=== PATIENT | male | born 1960 | race Caucasian/White ===

== ENCOUNTER → 2016-12-13 | Outpatient (CLI) | payer OTHER ==
[~2016-12-13] MED LIST: ASPEC325 PO; CLB200 PO; [UNRECOGNIZED DRUG - OTHER]
--- NOTE | 2016-12-14 06:39 | PAP/PSG TECHNICIAN REPORT ---
[facility] Climate Change Risk Assessor Polysomnogram Report Study name: None Report date: 12/14/2016 Study date: 12/13/2016 Referring Physician: Genesis Mcclure Name: ELOISA PEREZ Interpreting Physician: Cuca Blanc M.D. Date of : 1960 Climate Change Risk Assessor: Sophy Arnett, PSGT. Sex: Male Age: 56 StudyType: PSG Weight: 273 lbs Height: 56 years, Height 6' 4" Neck Circum:17.5 inches BMI: 33.23 Medications: Anusol - hc. Patient History 56 YR. OLD MALE IN ROOM 7, PRESENTS TONIGHT FOR A SPLIT NIGHT STUDY. PT. STATES THAT HIS GIRLFRIEND HAS WITNESSED APNA, HE WAKES HIMSELF SNORING AND HE HAS UNREFRESHED SLEEP.ROOM # 7, ESS= 8, NECK= 17.5 INCHES. Parameters Monitored NPSG: E1-M2, E2-M1, Fp1-M2, Fp2-M1, F3-M2, F4-M2, F4-M1, C3-M2, C4-M2, C4-M1, O1-M2, O2-M2, O2-M1, T3-M2, T4-M1, P3-M2, P4-M1, CHIN1, CHIN2, HR, EKG, Legs, PFLOW, SNOR, FLOW, CFLOW, Tidal Volume, THOR, ABDO, SpO2, PLTH, CPRESS, ETCO2 Wave, ETCO2, pH Sleep Architecture Sleep Stages Time at Lights Off 9:44:32 PM STAGES Time (min.) TST (%) Time at Lights On 5:10:02 AM Wake 58.0 -- Total Recording Time (TRT) 446.00 min. N1 16.0 4 Total Sleep Period (TSP) 423.5 min. N2 289.5 75 Total Sleep Time (TST) 386.5min. N3 5.5 1 Awake Time 58.0 min. REM 75.5 20 Wake after Sleep Onset 37.0 min. Sleep Efficiency (SE) 87 % Sleep Onset Latency (JANENE) 22.0 min. Number of Stage 1 Shifts None Awakenings 12 Stage Changes 53 Number of REM periods 7 REM 75.5 20 REM Latency 55.5 min. NREM 311.0 80 Body Position Analysis Supine Right Left Side Prone Vertical Total Sleep Time (min.) 220.2 12.5 195.7 208.22 0.0 0.0 Total Sleep Time (%) 46% 3% 51% 54 0% N/A% Total Sleep Time REM (min.) 18.1 0.0 57.4 None 0.0 0.0 Total Sleep Time NREM (min.) 160.2 12.5 138.3 None 0.0 0.0 Intermittent Wake (min.) 41.9 4.4 11.7 None 0.0 0.0 Total Sleep Period (%) 47% None None None None None Arousals Myoclonus (PLM) * Events Count Index Events Count Index Spontaneous 24 4 Events Awake (PLMW) 4 4.1 Respiratory 6 0.9 Events Asleep w/ Arousal (PLMA) 1 0.2 PLM 1 0 Events Asleep w/o Arousal (PLMS) 54 8.4 Snoring 1 0 Total Asleep 55 8.5 Total 32 5 Total 59 8 Respiratory Analysis * CA OA MA CH H RERA Total Count 0 0 0 0 29 3 29 Index 0.0 0.0 0.0 0 4.5 0 5.0 Mean Duration 0.0 0.0 0.0 0.00 24.3 13.8 23.3 Longest Duration 0.0 0.0 0.0 0.00 0.0 18.3 51.4 Respiratory Event Summary Total Supine ~Supine Right Left Prone REM NREM Apneas Count 0 0 0 0 0 N/A 0 0 Index 0.0 0 0 0.0 0.0 N/A 0 0 Hypopneas (4% Desat) Count 29 12 17 0 17 N/A 4 25 Index 4.5 4.0 5 0.0 5.2 N/A 3.2 4.8 Apneas & All Hypopneas Count 29 12 17 0 17 N/A 4 25 Index 4.5 4 5 0 5 N/A 3.2 4.8 Respiratory Events ([place]+All Hyp+RERA) Count 29 12 20 0 20 N/A 4 25 Index 5.0 4 6 0.0 6.1 N/A 3.2 5.4 Respiratory Related Arousal Count 6 12 6 0 6 N/A 0 6 Index 0.9 0 2 0 2 N/A 0 1 Snoring Analysis Supine Right Left Prone REM NREM Total Snore duration 0.5 min Snores count 10 6 7 N/A 1 22 23 Snore mean duration 1.3 Sec Snores index 3 29 2 N/A 0.8 4.2 3.6 TST with snoring (%) 0.1% Desaturation Event Summary: Minimum %SpO2 Event Count Mean/Min/Max Duration(sec.) Desaturation Index % Time In Bed > 90 32 29.6 / 11.0 / 57.2 12.0 39.3 86 - 90 31 27.5 / 12.0 / 53.8 7.7 59.3 81 - 85 0 N/A 0.0 1.3 76 - 80 0 N/A 0.0 0.1 71 - 75 0 N/A 0.0 0.0 66 - 70 0 N/A 0.0 0.0 61 - 65 0 N/A 0.0 0.0 56 - 60 0 N/A 0.0 0.0 51 - 55 0 N/A 0.0 0.0 < 50 0 N/A 0.0 0.0 Total REM NREM Awake <50% 0.0 min. 0.0 min. 0.0 min. 0.0 min. 51 - 60% 0.0 min. 0.0 min. 0.0 min. 0.0 min. 61 - 70% 0.0 min. 0.0 min. 0.0 min. 0.0 min. 71 - 80% 0.3 min. 0.0 min. 0.1 min. 0.2 min. 81 - 90% 246.5 min. 39.7 min. 188.6 min. 18.2 min. 91 - 100% 159.9 min. 32.7 min. 106.1 min. 21.1 min. Average 90 90 90 91 Minimum SpO2 80 83 80 80 Desaturation Event Index 5.4 5.6 6.4 0.0 # Desat. Events below 89% 38 6 32 0 Time(%) with Saturation below 89% 22.6 4.7 16.8 1.1 Time(min.) with Saturation below 89% 91.8 19.0 68.4 4.4 Time (mins) REM (mins) NREM (mins) % of TST SpO2 Below 90% 40 7 N33 34.6 SpO2 Below 88% 18 0 0 14 Heart Rate Analysis Min (bpm) Max (bpm) Average (bpm) Awake 44 161 55 NREM 33 127 49 REM 44 127 52 Overall 33 127 49 Supplemental O2 Values Minimum O2 level: None Value Start Time End Time Climate Change Risk Assessor Comments PSG Study slept in the right, left, and supine positions. No cardiac arrhythmia or PLM's noted. No bruxism noted. Snoring was noted and scored as a 3 on a scale of 1 through 5. (0=no snoring, 5=snoring loud enough to be heard through a closed door or down the [address] way) Mr. Perez awoke to use the restroom zero times during the night. Mr. Perez stated, I did sleep as well as I do when I am in my own bed. The final report will be interpreted and signed by a sleep physician. The completed physician report will then be placed in the patient medical record. Pt. had some mild respiratory events and moderate snoring, throughout the study. Therapy (cm H2O) 0 TIB (min.) 444.5 TST (min.) 386.5 Sleep Onset (min.) 22.0 REM Onset From Sleep (min.) 55.5 Sleep Efficiency % 87 Wakefulness (%) 13 Wakefulness (min.) 58.0 NREM 1 (%) 4 NREM 1 (min.) 16.0 NREM 2 (%) 75 NREM 2 (min.) 289.5 NREM 3 (%) 1 NREM 3 (min.) 5.5 REM (%) 20 REM (min.) 75.5 # Arousals 32 Arousal Index 5 # Snore 23 Snore Index 3.6 AHI 4.5 AHI Supine 4 AHI Non-Supine 5 NREM AHI 4.8 REM AHI 3.2 RDI 5.0 # Obstructive Apnea 0 # Central Apnea 0 # Mixed Apnea 0 # Hypopneas 29 RERAs 3 Total Respiratory Events 32 Time Below SpO2 89% (min.) 87.4 Mean NREM SpO2 (%) 90 Mean REM SpO2 (%) 90 Mean Sleep SpO2 (%) 90 Min NREM SpO2 (%) 80 Min REM SpO2 (%) 83 Position Supine (min.) 220.2 Position Non-supine (min.) 208.2 LM Index Sleep 8.5 LM Index NREM 8.5 LM Index REM 8.7 Mean Heart Rate (bpm) 49 Min Heart Rate (bpm) 33
--- NOTE | 2016-12-27 09:10 | POLYSOMNOGRAPH REPORT ---
TEST DATE: 12/13/2016. REFERRING PERSON: Dr. Cuca Blanc. ORTHOTIST: Araseli Arnett. Mr. Perez is a 56-year-old male who presents for a split night sleep study. He states his girlfriend has witnessed him pause in his breathing when he sleeps at night. He does not wake unrefreshed from sleep and he does snore. His [place] Sleepiness Scale Score on the evening of this study is 8. BMI is 33.23. Following the technical and digital specifications of the [place] [employer] (AASM) a standard diagnostic polysomnogram was performed monitoring EEG, EOG, EMG (chin and leg deviations), oxygen saturation, body position, digital video, respiratory effort and airflow. The sleep Stage and event scoring was based on the AASM Manual for the Scoring of Sleep and Associated Events 2007 edition. Apneas are defined as a drop in the peak thermal sensor excursion by >90% of baseline for at least 10 seconds. Hypopneas were scored using the 4% oxygen desaturation rule (4A-[employer]) and a decrease in the nasal pressure excursions by >30% of baseline for at least 10 seconds. Respiratory effort-related arousal (RERA's) is defined as a sequence of breaths lasting at least 10 seconds characterized by increasing respiratory effort or flattening of the nasal pressure waveform leading to an arousal from sleep when the sequence of breaths does not meet criteria for an apnea or hypopnea. Apnea Hypopnea index (AHI) is defined as the number of apneas and hypopneas occurring in an hour of sleep. Respiratory disturbance index (RDI) is defined as the number of apneas, hypopneas, and RERA's occurring in an hour of sleep. Mr. Perez's total sleep period time was 423.5 minutes. Total sleep time was 386.5 minutes. Sleep efficiency was 87%. Latency to sleep onset was 22 minutes. Wake after sleep onset was 37 minutes. Total non-REM sleep time was 311 minutes. This patient spent 4% of that time in N1 sleep, 75% in N2 sleep and 1% in N3 sleep. This is abnormal non-REM sleep architecture with a propensity for superficial sleep. REM latency was short at 55.5 minutes. Total REM sleep time was 75.5 minutes or 20% of total sleep time. There were 32 cortical arousals from sleep. Six of these arousals were due to respiratory events, 1 due to periodic limb movements of sleep, 1 due to snoring and the remaining 24 were spontaneous. There were 55 periodic limb movements. Limb movement index was 8.5. Limb movement with arousal index was 0.2. There was no obstructive, central or mixed apnea on this test. There were 29 hypopneas and 3 RERA. Apnea-hypopnea index was 4.5 with an RDI of 5.0. There were 23 snoring events. Total sleep time with snoring was 0.1%. Mean saturation with sleep was 90% with desaturations to 80%. These desaturations appear with clusters of respiratory events. Saturations were less than 89 for 91.8 minutes of sleep time. This is significant nocturnal hypoxemia. There was no cardiac ectopy noted on this study. Heart rates during sleep ranged from a low of 33 beats per minute to a high of 127 beats per minute. IMPRESSION AND PLAN: A 56-year-old male without evidence of sleep apnea or borderline mild sleep apnea, but significant nocturnal hypoxemia on this study. This patient would likely benefit from oxygen therapy at bedtime. He should be started on 2 liters and then nocturnal oximetry be performed on therapy to ensure his hypoxemia resolves. He should be seen clinically as well to determine if this makes improvement in his unrefreshing sleep.
== END | disposition home or self-care (01) ==
LOC: C.NEUR 21:00
PROVIDERS: ATTEND Family Medicine
DX: G47.33 Obstructive sleep apnea (adult) (pediatric) (principal)

== ENCOUNTER → 2017-02-10 | Outpatient (CLI) | payer OTHER ==
--- NOTE | 2017-02-10 12:04 | DIAGNOSTIC IMAGING REPORT ---
Study: Diaphragmatic motion evaluation INDICATION: elevation right hemidiaphragm FINDINGS: Under fluoroscopic guidance, there is a normal motion of the right as well as left hemidiaphragm. IMPRESSION: Normal study. Electronically signed by: Chandan Stewart M.D. 02/10/2017 12:03 PM Dictated Date/Time: 02/10/2017 12:01 PM
== END | disposition home or self-care (01) ==
LOC: C.RAD 11:37
PROVIDERS: ATTEND Nurse Practitioner Family
DX: J98.6 Disorders of diaphragm (principal)